=== PATIENT | male | born 1970 | race Caucasian/White ===

== ENCOUNTER 2019-12-23 11:15 | Inpatient (IN) | payer OTHER ==
--- NOTE | 2019-12-23 11:28 | BHS.RME ---
Substance Use & Tx History - Substance Use History Heroin Substance amount: 1/2 to 1 gram Frequency of use: Daily Substance route: Injection (ex: intravenous or skin popping) Date of Last Use: 12/23/19 Alcohol Substance amount: 2-3 beers 12 oz Frequency of use: Daily Substance route: Oral Date of Last Use: 12/22/19 Cocaine- Powder Substance amount: 1/2-1 gram Frequency of use: Daily Substance route: Injection (ex: intravenous or skin popping) Date of Last Use: 12/23/19 Marijuana/Hashish Substance amount: 4-5 blunts Frequency of use: Daily Substance route: Smoking Date of Last Use: 12/23/19 Physical/Psych/Mental Status - Behavior General Behavior: Increased activity (restlessness, agitation) Eye Contact: Normal - Cooperativeness Cooperativeness: Cooperative - Thinking Thought Processes: Tight, Logical, Goal Directed - Physical Health Problems Is patient presently having any pain?: No Does patient presently have any injuries (include location): No Does patient currently have a fever: No Is patient : No COWS - Scale Resting Pulse: 1= [place] 81-100 Sweatin= No chills or Flushing Restless Observation: 3= Extraneous Movement Pupil Size: 0= Normal to Room Light Bone or Joint Aches: 1= Mild Discomfort Runny Nose/ Eye Tearin= Nasal Congestion GI Upset > 30mins: 1= Stomach Cramp Tremor Observation: 1= Tremor [place], Not Seen Yawning Observation: 2= >3x During Session Anxiety or Irritability: 2=Irritable/Anxious Goose Flesh Skin: 0=Smooth Skin COWS Score: 12 CIWA Nausea/Vomitin Muscle Tremors: 1-None Visible, but [place] Anxiety: 3 Agitation: 3 Paroxysmal Sweats: 1-Minimal Palms Moist Orientation: 0-Oriented Tacttile Disturbances: 0-None Auditory Disturbances: 0-None Visual Disturbances: 0-None Headache: 0-None Present CIWA-Ar Total Score: 10
--- NOTE | 2019-12-23 12:13 | HP ---
COWS - Scale Resting Pulse: 1= [place] 81-100 Sweatin= No chills or Flushing Restless Observation: 3= Extraneous Movement Pupil Size: 0= Normal to Room Light Bone or Joint Aches: 1= Mild Discomfort Runny Nose/ Eye Tearin= Nasal Congestion GI Upset > 30mins: 1= Stomach Cramp Tremor Observation: 1= Tremor [place], Not Seen Yawning Observation: 2= >3x During Session Anxiety or Irritability: 2=Irritable/Anxious Goose Flesh Skin: 0=Smooth Skin COWS Score: 12 CIWA Score Nausea/Vomitin Muscle Tremors: 1-None Visible, but [place] Anxiety: 3 Agitation: 3 Paroxysmal Sweats: 1-Minimal Palms Moist Orientation: 0-Oriented Tacttile Disturbances: 0-None Auditory Disturbances: 0-None Visual Disturbances: 0-None Headache: 0-None Present CIWA-Ar Total Score: 10 - Admission Criteria [facility]ASAS Guidelines: Admission for Medically Managed Detox: Requires at least one of the followin. CIWA greater than 12 2. Seizures within the past 24 hours 3. Delirium tremens within the past 24 hours 4. Hallucinations within the past 24 hours 5. Acute intervention needed for co occurring medical disorder 6. Acute intervention needed for co occurring psychiatric disorder 7. Severe withdrawal that cannot be handled at a lower level of care (continued vomiting, continued diarrhea, abnormal vital signs) requiring intravenous medication and/or fluids 8. Admitting History and Physical - Admission Chief Complaint: Mr. Driscoll is a 49 yo man who presents to [facility] requesting admission to detox for heroin and alcohol use disorder. History of Present Illness: Mr. Driscoll is a 49 yo man who presents to [facility] requesting admission to detox for heroin and alcohol use disorder. This is the patients first visit to [facility]. PMH: HCV not treated yet: plans to tx in December, H. 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 Cocaine- Powder Substance amount: 1/2-1 gram Frequency of use: Daily Substance route: Injection (ex: intravenous or skin popping) Date of Last Use: 12/23/19 First use age 46 y Marijuana/Hashish Substance amount: 4-5 blunts Frequency of use: Daily Substance route: Smoking Date of Last Use: 12/23/19 First use age 44 yo Nicotine: never smoked Methadone: 2 years ago Suboxone; no program Admission ROS [facility] - HPI Exam Limitations: No Limitations - Ebola screening Have you traveled outside of the country in the last 21 days: No Have you been sick,other than usual withdrawal symptoms: No Do you have a fever: No - Review of Systems Constitutional: No Symptoms Reported EENT: reports: Blurred Vision (has glasses with him for distance) Respiratory: reports: No Symptoms reported Cardiac: reports: No Symptoms Reported GI: reports: Nausea : reports: No Symptoms Reported Musculoskeletal: reports: Joint Pain Integumentary: reports: Other (Patient believes he has "mites" embedded in his finger tips and that he can see them coming out, he pulls them out.) Endocrine: reports: No Symptoms Reported Hematology: reports: No Symptoms Reported Psychiatric: reports: other (Patient believes he has "mites" embedded in his finger tips and that he can see them coming out, he pulls them out.) Patient History - Smoking Cessation Smoking history: Never smoked Admission Physical Exam [facility] - Physical General Appearance: Yes: No Apparent Distress, Nourished, Appropriately Dressed HEENTM: Yes: EOMI, Hearing grossly Normal, Normocephalic, Normal Voice Respiratory: Yes: Lungs Clear, Normal Breath Sounds, No Respiratory Distress, No Accessory Muscle Use Neck: Yes: Within Normal Limits, Supple Breast: Yes: Breast Exam Deferred Cardiology: Yes: Regular Rhythm, Regular Rate, S1, S2 Abdominal: Yes: Normal Bowel Sounds, Non Tender, Flat, Soft Back: Yes: Normal Inspection Musculoskeletal: Yes: Gait Steady Extremities: Yes: Normal Inspection, Non-Tender Neurological: Yes: Alert, Normal Response Integumentary: Yes: Normal Color, Dry, Warm, Other (left thumb nail deformity, no other abnormalities noted in fingers) - Diagnostic (1) Alcohol dependence with withdrawal, uncomplicated Current Visit: Yes Status: Acute (2) Opioid withdrawal Current Visit: Yes Status: Acute (3) Cocaine dependence Current Visit: Yes Status: Acute Qualifiers: Substance use status: uncomplicated Qualified Code(s): F14.20 - Cocaine dependence, uncomplicated (4) Cannabis dependence Current Visit: Yes Status: Acute (5) HCV (hepatitis C virus) Current Visit: Yes Status: Acute Qualifiers: Viral hepatitis chronicity: acute Cleared for Admission [facility] - Detox or Rehab [facility] Level of Care: Medically Managed Detox Regimen/Protocol: Ativan, Methadone Inpatient Rehab Admission - Rehab Decision to Admit Inpatient rehab admission?: No
[2019-12-23] MEDS ORDERED: METHADONE HCL 10 MG TABLET (FOR DETOX USE ONLY) PO ONE (12:37)
[2019-12-23] MEDS ORDERED: BISMUTH SUBSALICYLATE 262 MG/15 ML BTL PO PRN (12:37)
[2019-12-23] MEDS ORDERED: MAGNESIUM CITRATE 300 ML BOTTLE PO PRN (12:37)
[2019-12-23] MEDS ORDERED: MENTHOL/PHENOL 1 EACH UD MM PRN (12:37)
[2019-12-23] MEDS ORDERED: ACETAMINOPHEN 325 MG TABLET (FP) PO PRN ×2 (12:37)
[2019-12-23] MEDS ORDERED: METHOCARBAMOL 500 MG TABLET PO PRN (12:37)
[2019-12-23] MEDS ORDERED: IBUPROFEN 400 MG TABLET (FP) PO PRN (12:37)
[2019-12-23] MEDS ORDERED: cloNIDine HCL 0.1 MG TABLET PO PRN (12:37)
[2019-12-23] MEDS ORDERED: LORazepam 1 MG TABLET PO PRN (12:37)
[2019-12-23] MEDS ORDERED: MAGNESIUM HYDROX 2400MG/30ML ORAL SUSPENSION 30 ML CUP PO PRN (12:37)
[2019-12-23] MEDS ORDERED: MAG HYDROX/AL HYDROX/SIMETH 30 ML UNIT-DOSE CUP PO PRN (12:37)
[2019-12-23] MEDS ORDERED: ONDANSETRON *ODT* 4 MG TABLET SL PRN (12:37)
[2019-12-23 12:50] VITALS: BMI 25.7
[2019-12-23] MEDS: hydrOXYzine PAMOATE 25 MG CAPSULE (FP) PO SCH ×3 (14:37→22:29)
--- NOTE | 2019-12-23 14:52 | CONSULT ---
[facility] Psychiatric Consult - Data Date of interview: 12/23/19 Identifying data: Mr Driscoll is a 49 years old male seeking detox treatment for alcohol, opioid, cocaine and cannabis Substance Abuse History: Reports history of alcohol, heroin, cocaine and marijuana use. Refer to addiction counselor's summary for further information Medical History: Significant for hepatitis C and treatment for H Pylori Psychiatric History: Patient was approached at bedside. 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
[2019-12-23 15:29] LABS: HEMATOCRIT 44.8 % (35.4-49); HEMOGLOBIN 14.8 GM/dL (11.7-16.9); MCH 29.1 pg (25.7-33.7); MCHC 33.1 g/dl (32.0-35.9); MEAN CELL VOLUME 87.9 fl (80-96); MEAN PLT VOLUME 9.2 fl (7.5-11.1); PLATELET COUNT 233 K/MM3 (134-434); RBC 5.09 M/mm3 (4.00-5.60); RDW 13.6 % (11.9-15.9); WHITE BLOOD COUNT 8.2 K/mm3 (4.0-10.0)
[2019-12-23 15:42] LABS: ALBUMIN 4.2 g/dl (3.4-5.0); BILIRUBIN,TOTAL 0.5 mg/dL (0.2-1); BLOOD UREA NITROGEN 10.4 mg/dL (7-18); CALCIUM 9.4 mg/dL (8.5-10.1); CREATININE 1.1 mg/dL (0.55-1.3); POTASSIUM 4.4 mmol/L (3.5-5.1); TOT PROT 7.8 g/dl (6.4-8.2)
[2019-12-23] MEDS: LORazepam 2 MG TABLET PO SCH ×2 (17:28→22:29)
[2019-12-23] MEDS: MELATONIN 5 MG TABLETS PO SCH (22:28)
[2019-12-23] MEDS: THIAMINE HCL 100 MG TABLET (FP) PO SCH (22:28)
[2019-12-24] MEDS: LORazepam 2 MG TABLET PO SCH ×4 (05:05→22:10)
[2019-12-24] MEDS: hydrOXYzine PAMOATE 25 MG CAPSULE (FP) PO SCH ×5 (05:05→22:11)
[2019-12-24] MEDS ORDERED: METHADONE HCL 5 MG TABLET (FOR DETOX USE ONLY) ONE (09:08)
[2019-12-24] MEDS ORDERED: METHADONE HCL 10 MG TABLET (FOR DETOX USE ONLY) ONE (09:08)
--- NOTE | 2019-12-24 09:54 | PN ---
[facility] CIWA - CIWA Score Nausea/Vomitin-Mild Nausea/No Vomiting Muscle Tremors: 2 Anxiety: 2 Agitation: 2 Paroxysmal Sweats: No Perspiration Orientation: 0-Oriented Tacttile Disturbances: 1-Very Mild Itch/Numbness Auditory Disturbances: 0-None Visual Disturbances: 0-None Headache: 2-Mild CIWA-Ar Total Score: 10 BHS COWS - Scale Resting Pulse: 1= [place] 81-100 Sweatin= No chills or [place] Restless Observation: 1= Difficult to Sit Still Pupil Size: 0= Normal to Room Light Bone or Joint Aches: 2= Severe Diffuse Aches Runny Nose/ Eye Tearin= Nasal Congestion GI Upset > 30mins: 1= Stomach Cramp Tremor Observation of Outstretched Hands: 2= Slight Tremor Visible Yawning Observation: 1= 1-2x During Session Anxiety or Irritability: 2=Irritable/Anxious Goose Flesh Skin: 0=Smooth Skin COWS Score: 11 [facility] Progress Note (SOAP) Subjective: alert,irritable,anxious,interrupted sleep,tremor,pain in the body and back,nausea Objective: 12/24/19 09:53 Vital Signs Temperature 97.3 F L 12/24/19 08:38 Pulse Rate 84 12/24/19 08:38 Respiratory Rate 18 12/24/19 08:38 Blood Pressure 150/76 12/24/19 08:38 O2 Sat by Pulse Oximetry (%) 97 12/24/19 08:38 Laboratory Last Values WBC 8.2 K/mm3 (4.0-10.0) 12/23/19 12:35 RBC 5.09 M/mm3 (4.00-5.60) 12/23/19 12:35 Hgb 14.8 GM/dL (11.7-16.9) 12/23/19 12:35 Hct 44.8 % (35.4-49) 12/23/19 12:35 MCV 87.9 fl (80-96) 12/23/19 12:35 MCH 29.1 pg (25.7-33.7) 12/23/19 12:35 MCHC 33.1 g/dl (32.0-35.9) 12/23/19 12:35 RDW 13.6 % (11.9-15.9) 12/23/19 12:35 Plt Count 233 K/MM3 (134-434) 12/23/19 12:35 MPV 9.2 fl (7.5-11.1) 12/23/19 12:35 Sodium 140 mmol/L (136-145) 12/23/19 12:35 Potassium 4.4 mmol/L (3.5-5.1) 12/23/19 12:35 Chloride 104 mmol/L (98-107) 12/23/19 12:35 Carbon Dioxide 30 mmol/L (21-32) 12/23/19 12:35 Anion Gap 6 MMOL/L (8-16) L 12/23/19 12:35 BUN 10.4 mg/dL (7-18) 12/23/19 12:35 Creatinine 1.1 mg/dL (0.55-1.3) 12/23/19 12:35 Est GFR (CKD-EPI)AfAm 91.52 12/23/19 12:35 Est GFR (CKD-EPI)NonAf 78.96 12/23/19 12:35 Random Glucose 66 mg/dL (74-106) L 12/23/19 12:35 Calcium 9.4 mg/dL (8.5-10.1) 12/23/19 12:35 Total Bilirubin 0.5 mg/dL (0.2-1) 12/23/19 12:35 AST 64 U/L (15-37) H 12/23/19 12:35 ALT 136 U/L (13-61) H 12/23/19 12:35 Alkaline Phosphatase 134 U/L (45-117) H 12/23/19 12:35 Total Protein 7.8 g/dl (6.4-8.2) 12/23/19 12:35 Albumin 4.2 g/dl (3.4-5.0) 12/23/19 12:35 Syphilis Serology Reactive (NONREACTIVE) A* 12/23/19 12:35 COVID-19 (MARTHA) Not detected (Not Detected) 12/23/19 14:30 12/24/19 09:54 rpr titer pending Assessment: 12/24/19 09:54 withdrawal symptom Plan: continue detox methadone and ativan regimen
[2019-12-24] MEDS ORDERED: METHADONE (DETOX) 20 MG, METHADONE (DETOX) 5 MG PO ONE (10:00)
[2019-12-24] MEDS: PRENATAL VITAMINS W/ FOLIC ACID TABLET (FP) PO SCH (11:02)
[2019-12-24] MEDS ORDERED: PENICILLIN G BENZATHINE 2,400,000 UNIT/4 ML PFS IM ONE (11:49)
--- NOTE | 2019-12-24 11:57 | PN ---
[facility] Progress Note Note: Laboratory Last Values WBC 8.2 K/mm3 (4.0-10.0) 12/23/19 12:35 RBC 5.09 M/mm3 (4.00-5.60) 12/23/19 12:35 Hgb 14.8 GM/dL (11.7-16.9) 12/23/19 12:35 Hct 44.8 % (35.4-49) 12/23/19 12:35 MCV 87.9 fl (80-96) 12/23/19 12:35 MCH 29.1 pg (25.7-33.7) 12/23/19 12:35 MCHC 33.1 g/dl (32.0-35.9) 12/23/19 12:35 RDW 13.6 % (11.9-15.9) 12/23/19 12:35 Plt Count 233 K/MM3 (134-434) 12/23/19 12:35 MPV 9.2 fl (7.5-11.1) 12/23/19 12:35 Sodium 140 mmol/L (136-145) 12/23/19 12:35 Potassium 4.4 mmol/L (3.5-5.1) 12/23/19 12:35 Chloride 104 mmol/L (98-107) 12/23/19 12:35 Carbon Dioxide 30 mmol/L (21-32) 12/23/19 12:35 Anion Gap 6 MMOL/L (8-16) L 12/23/19 12:35 BUN 10.4 mg/dL (7-18) 12/23/19 12:35 Creatinine 1.1 mg/dL (0.55-1.3) 12/23/19 12:35 Est GFR (CKD-EPI)AfAm 91.52 12/23/19 12:35 Est GFR (CKD-EPI)NonAf 78.96 12/23/19 12:35 Random Glucose 66 mg/dL (74-106) L 12/23/19 12:35 Calcium 9.4 mg/dL (8.5-10.1) 12/23/19 12:35 Total Bilirubin 0.5 mg/dL (0.2-1) 12/23/19 12:35 AST 64 U/L (15-37) H 12/23/19 12:35 ALT 136 U/L (13-61) H 12/23/19 12:35 Alkaline Phosphatase 134 U/L (45-117) H 12/23/19 12:35 Total Protein 7.8 g/dl (6.4-8.2) 12/23/19 12:35 Albumin 4.2 g/dl (3.4-5.0) 12/23/19 12:35 Syphilis Serology Reactive (NONREACTIVE) A* 12/23/19 12:35 RPR Titer Reactive 1:1 (NONREACTIVE) H 12/23/19 12:35 COVID-19 (MARTHA) Not detected (Not Detected) 12/23/19 14:30 patient denied history of syphilis before patient agreed to receive bicillin 2.4 million unit Im and follow up with his PMD for subsequent injection one week apart on 12/31/2019 and 01/07/2020
[2019-12-24] MEDS: THIAMINE HCL 100 MG TABLET (FP) PO SCH (22:10)
[2019-12-24] MEDS: MELATONIN 5 MG TABLETS PO SCH (22:12)
[2019-12-25] MEDS: LORazepam 1 MG TABLET PO SCH ×4 (05:25→22:05)
[2019-12-25] MEDS: hydrOXYzine PAMOATE 25 MG CAPSULE (FP) PO SCH ×5 (05:25→22:05)
[2019-12-25] MEDS ORDERED: METHADONE HCL 10 MG TABLET (FOR DETOX USE ONLY) PO ONE (10:00)
[2019-12-25] MEDS: PRENATAL VITAMINS W/ FOLIC ACID TABLET (FP) PO SCH (10:10)
--- NOTE | 2019-12-25 10:59 | PN ---
[facility] CIWA - CIWA Score Nausea/Vomitin-Mild Nausea/No Vomiting Muscle Tremors: 2 Anxiety: 2 Agitation: 2 Paroxysmal Sweats: No Perspiration Orientation: 0-Oriented Tacttile Disturbances: 0-None Auditory Disturbances: 0-None Visual Disturbances: 0-None Headache: 1-Very Mild CIWA-Ar Total Score: 8 BHS COWS - Scale Resting Pulse: 2= [place] 101-120 Sweatin= No chills or Flushing Restless Observation: 0= Sits Still Pupil Size: 0= Normal to Room Light Bone or Joint Aches: 2= Severe Diffuse Aches Runny Nose/ Eye Tearin= Nasal Congestion GI Upset > 30mins: 1= Stomach Cramp Tremor Observation of Outstretched Hands: 2= Slight Tremor Visible Yawning Observation: 0= None Anxiety or Irritability: 2=Irritable/Anxious Goose Flesh Skin: 0=Smooth Skin COWS Score: 10 B[facility] Progress Note (SOAP) Subjective: alert,irritable,anxious,interrupted sleep,tremor,pain in the body and back,nausea Objective: 12/25/19 10:58 Vital Signs Temperature 97.8 F 12/25/19 08:50 Pulse Rate 102 H 12/25/19 08:50 Respiratory Rate 18 12/25/19 08:50 Blood Pressure 124/85 12/25/19 08:50 O2 Sat by Pulse Oximetry (%) 100 12/25/19 08:50 Assessment: 12/25/19 10:59 withdrawal symptom Plan: continue detox methadone and ativan regimen
[2019-12-25 11:00] LABS: INR 1.15 (0.83-1.09); PROTHROMBIN TIME (PATIENT) 13.6 SEC (9.7-13.0)
[2019-12-25 11:05] LABS: ALBUMIN 3.6 g/dl (3.4-5.0); BILIRUBIN,DIRECT 0.2 mg/dL (0.0-0.2); BILIRUBIN,TOTAL 0.8 mg/dL (0.2-1); TOT PROT 6.9 g/dl (6.4-8.2)
[2019-12-25] MEDS: THIAMINE HCL 100 MG TABLET (FP) PO SCH (22:05)
[2019-12-25] MEDS: MELATONIN 5 MG TABLETS PO SCH (22:06)
[2019-12-25] MEDS ORDERED: TRIMETHOBENZAMIDE HCL 200MG/2ML INJ IM PRN (23:31)
[2019-12-26] MEDS ORDERED: LORazepam 0.5 MG TABLET PO PRN
[2019-12-26 01:45] VITALS: BP 155/88; PULSE 59; TEMP 98.2
--- NOTE | 2019-12-26 01:57 | DS ---
[facility] Detox Discharge Summary Admission Date: 12/23/19 Discharge Date: 12/26/19 - History Present History: Alcohol Dependence, Cannabis Dependence, Cocaine Dependence, Opioid Dependence Additional Comments: CLIENT SIGNED OUT AMA. C/O BODY ACHES AND HEARTBURN. CLIENT REPORTS WHAT HE HAS RECEIVED IS NOT HELPING HIM AND DID NOT WANT TO DISCUSS ANY FURTHER. I JUST WANT TO GO HOME MISS". CLIENT IS A/O X3 NAD, APPEARS IRRITABLE NCAT AMBULATING SELF W/O DIFFICULTY, STEADY GAIT NOTED DENIES SOB, C.P., SI/HI/AVH. LEFT FACILITY IN STABLE CONDITION Vital Signs Temperature 98.2 F 12/26/19 01:44 Pulse Rate 59 L 12/26/19 01:44 Respiratory Rate 18 12/26/19 01:44 Blood Pressure 155/88 12/26/19 01:44 O2 Sat by Pulse Oximetry (%) 99 12/26/19 01:44 Pertinent Past History: HCV NICOTINE DEP - Physical Exam Results Vital Signs: Vital Signs Temperature 98.2 F 12/26/19 01:44 Pulse Rate 59 L 12/26/19 01:44 Respiratory Rate 18 12/26/19 01:44 Blood Pressure 155/88 12/26/19 01:44 O2 Sat by Pulse Oximetry (%) 99 12/26/19 01:44 Pertinent Admission Physical Exam Findings: WITHDRAWAL SX'S Laboratory Tests 12/23/19 12/23/19 12/23/19 12:35 12:35 12:35 WBC 8.2 RBC 5.09 Hgb 14.8 Hct 44.8 MCV 87.9 MCH 29.1 MCHC 33.1 RDW 13.6 Plt Count 233 MPV 9.2 PT with INR INR Sodium 140 Potassium 4.4 Chloride 104 Carbon Dioxide 30 Anion Gap 6 L BUN 10.4 Creatinine 1.1 Est GFR (CKD-EPI)AfAm 91.52 Est GFR (CKD-EPI)NonAf 78.96 Random Glucose 66 L Calcium 9.4 Total Bilirubin 0.5 Direct Bilirubin AST 64 H ALT 136 H Alkaline Phosphatase 134 H Total Protein 7.8 Albumin 4.2 Syphilis Serology Reactive A* RPR Titer COVID-19 (MARTHA) 12/23/19 12/23/19 12/25/19 12:35 14:30 07:40 WBC RBC Hgb Hct MCV MCH MCHC RDW Plt Count MPV PT with INR INR Sodium Potassium Chloride Carbon Dioxide Anion Gap BUN Creatinine Est GFR (CKD-EPI)AfAm Est GFR (CKD-EPI)NonAf Random Glucose Calcium Total Bilirubin 0.8 Direct Bilirubin 0.2 AST 52 H ALT 112 H Alkaline Phosphatase 123 H Total Protein 6.9 Albumin 3.6 Syphilis Serology RPR Titer Reactive 1:1 H COVID-19 (MARTHA) Not detected 12/25/19 07:40 WBC RBC Hgb Hct MCV MCH MCHC RDW Plt Count MPV PT with INR 13.60 H INR 1.15 H Sodium Potassium Chloride Carbon Dioxide Anion Gap BUN Creatinine Est GFR (CKD-EPI)AfAm Est GFR (CKD-EPI)NonAf Random Glucose Calcium Total Bilirubin Direct Bilirubin AST ALT Alkaline Phosphatase Total Protein Albumin Syphilis Serology RPR Titer COVID-19 (MARTHA) - Treatment Hospital Course: Discharged Condition Good Patient has Accepted a Rehab Referral to: DECLINES - Diagnosis (1) Alcohol dependence with withdrawal, uncomplicated Status: Chronic (2) Cannabis dependence Status: Chronic (3) Cocaine dependence Status: Chronic Qualifiers: Substance use status: uncomplicated Qualified Code(s): F14.20 - Cocaine dependence, uncomplicated (4) HCV (hepatitis C virus) Status: Chronic Qualifiers: Viral hepatitis chronicity: chronic (5) Opioid withdrawal Status: Chronic - AMA Did Patient Leave Against Medical Advice: Yes
[2019-12-26] MEDS ORDERED: LORazepam 0.5 MG TABLET PO SCH (05:00)
[2019-12-26] MEDS ORDERED: METHADONE (DETOX) 10 MG, METHADONE (DETOX) 5 MG PO ONE (10:00)
[2019-12-27] MEDS ORDERED: LORazepam 0.5 MG TABLET PO ONE (05:00)
[2019-12-27] MEDS ORDERED: METHADONE HCL 10 MG TABLET (FOR DETOX USE ONLY) PO ONE (10:00)
[2019-12-28] MEDS ORDERED: METHADONE HCL 5 MG TABLET (FOR DETOX USE ONLY) PO ONE (06:00)
== END 2019-12-26 01:48 | disposition left against medical advice (07) | DRG 770 ==
LOC: YASAS 11:15 → Y6N 13:43
PROVIDERS: ADMIT Allergy & Immunology; ATTEND Allergy & Immunology
PROC: HZ2ZZZZ Detoxification Services for Substance Abuse Treatment (ICD-10-PCS; principal; 2019-12-23)
DX: F11.23 Opioid dependence with withdrawal (principal); F10.230 Alcohol dependence with withdrawal, uncomplicated; F14.20 Cocaine dependence, uncomplicated; F12.20 Cannabis dependence, uncomplicated; B18.2 Chronic viral hepatitis C
CPT/HCPCS: 36415; 71045-TC-FY; 80053; 80076; 85027; 85610; 86593; 86780; Q0162; U0003